=== PATIENT | male | born 1985 | race Two or more races ===

== ENCOUNTER 2016-09-28 08:43 | Emergency (ER) | payer BC ==
[2016-09-28 09:02] VITALS: BP 128/85
[2016-09-28] MEDS ORDERED: NAPROXEN SODIUM 550 MG TABLET PO ONE (09:11)
--- NOTE | 2016-09-28 09:56 | ERNOTE ---
Upper Extremity HPI - General Extremities Pain Location: shoulder: left Time Seen by Provider: 09/28/16 09:10 Source: patient Exam Limitations: no limitations - patient states that he injured his left shoulder approximately 2 weeks ago while at work. Patient was carrying a heavy object with another worker and they slipped and he tried to catch the weight using primarily his left arm. He states that ever since that time he is not been able to use the shoulder appropriately and has lost perhaps half of the strength because of pain in that shoulder as well. - Immun/Allergies/Home Medications Immunizations: IMMUNIZATION HX Immunizations Up to Date Yes History of Influenza Vaccine Yes Hx Pneumococcal Vaccination No Allergies/Adverse Reactions: Allergies Allergy/AdvReac Type Severity Reaction Status Date / Time erythromycin base Allergy Mild Hives Verified 09/28/16 09:03 [Erythromycin Base] Sulfa (Sulfonamide Allergy Mild Hives Verified 09/28/16 09:03 Antibiotics) escitalopram oxalate AdvReac Mild UPSET Verified 09/28/16 09:03 [From Lexapro] STOMACH sertraline HCl [From Zoloft] AdvReac Mild MEMORY Verified 09/28/16 09:03 LOSS, TROUBLE SLEEPING Home Medications: HOME MEDICATIONS Fexofenadine HCl [Becky Allergy] 180 mg PO DAILY PRN 12/08/15 [Last Taken Unknown] Cyclobenzaprine HCl [Flexeril] 10 mg PO TID PRN #30 tab 09/28/16 [Last Taken Unknown] Naproxen [Naprosyn] 500 mg PO BID #60 tablet 09/28/16 [Last Taken Unknown] - History of Present Illness Occurred: other - as noted Location of Incident: work Severity: moderate Loss of Consciousness: Reports: no loss of consciousness Associated Symptoms: Reports: weakness Other Injuries: Reports: none Review of Systems - Review of Systems Constitutional: Present: See HPI EYE: Present: no symptoms reported ENT: Present: no symptoms reported Respiratory: Present: no symptoms reported Cardiology: Present: no symptoms reported Gastrointestinal/Abdominal: Present: no symptoms reported Genitourinary: Present: no symptoms reported Musculoskeletal: Present: muscle pain, joint pain Skin: Present: no symptoms reported Neurological: Present: no symptoms reported Endocrine: Present: no symptoms reported Hematologic/Lymphatic: Present: no symptoms reported Psych: Present: no symptoms reported - Patient's Past Medical History Patient History - Medical: Anxiety, GERD Patient History - Cardiac/Respiratory: Asthma, Bronchitis Patient History - Cancer: No Hx of Cancer Patient History - Surgical Procedures: No surgical history Patient History - Other: None - Family History Father Family History - Medical: History Unknown Family History - Cardiac/Respiratory: History Unknown Mother Family History - Medical: History Unknown Family History - Cardiac/Respiratory: History Unknown - Social History Living Situations: home Abuse History: No History of abuse Psych History: Hx of Anxiety Smoking Status: Former smoker Alcohol Use: none Drug Use: none - Immunizations Immunizations Up to Date: Yes Hx Pneumococcal Vaccination: No History of Influenza Vaccine: Yes Physical Exam - Physical Exam General Appearance: Present: wd/wn, alert, moderate distress Eye Exam: Normal inspection: bilateral, PERRL: bilateral Ears, Nose, Throat: Present: normal ENT inspection, H, normal pharynx Neck: Present: normal inspection, nontender Respiratory: Present: no respiratory distress, normal breath sounds, no accessory muscle use, chest nontender, lungs clear Cardiovascular/Chest: Present: regular rate, rhythm, no murmur, normal peripheral pulses Gastrointestinal/Abdominal: Present: normal bowel sounds, nontender, nondistended, soft, no organomegaly Rectal Exam: Present: deferred Back Exam: Present: normal inspection, normal range of motion Extremity Exam: Present: no edema, decreased range of motion, other - patient has impaired both internal and external rotation of the left shoulder. He also has extraordinary difficulty with abduction of the left shoulder also. Neurological Exam: Present: alert, oriented, normal mood/affect Skin Exam: Present: normal color, warm/dry Lymphatic Exam: Present: no adenopathy ED Progress - Vital Signs Patient's Vital Signs:: I have reviewed the patient's vital signs. Vital Signs: Vital Signs 09/28/16 08:49 Temperature 36.6 C Pulse Rate 104 H Respiratory 14 Rate Blood Pressure 128/85 O2 Sat by Pulse 100 Oximetry - X-Ray X-Ray #1 X-Ray: shoulder - Progress/Reassessment Chief Complaint: Shoulder Injury/Pain Progress:: Improved Plan - Plan Plan: I suspect that the patient has sustained a left rotator cuff injury. The bulk of the pain appears to be across the supraspinatus muscle, however labrum tear should also be considered. Patient will be referred to orthopedic surgery where most likely an MRI will need to be done. Departure Clinical Impression: Rotator cuff injury Qualifiers: Encounter type: initial encounter Laterality: left Qualified Code(s): S46.002A - Unspecified injury of muscle(s) and tendon(s) of the rotator cuff of left shoulder, initial encounter - Departure Disposition: Home self-care Condition: Good Instructions: Rotator Cuff Injury Referrals: Butch Ho MD [Staff Physician] - Prescriptions: Cyclobenzaprine HCl [Flexeril] 10 mg PO TID PRN #30 tab PRN Reason: MUSCLE SPASMS Naproxen [Naprosyn] 500 mg PO BID #60 tablet
== END 2016-09-28 10:06 | disposition home or self-care (01) ==
LOC: ER 08:43
DX: S46.002A Unspecified injury of muscle(s) and tendon(s) of the rotator cuff of left shoulder, initial encounter (principal); W01.0XXA Fall on same level from slipping, tripping and stumbling without subsequent striking against object, initial encounter; Y93.89 Activity, other specified; Y92.69 Other specified industrial and construction area as the place of occurrence of the external cause; Y99.0 Civilian activity done for income or pay

== ENCOUNTER 2016-10-14 20:07 | Emergency (ER) | payer SELFPAY ==
[2016-10-14 20:24] VITALS: BP 122/81
== END 2016-10-14 20:29 | disposition left against medical advice (07) ==
LOC: ER 20:07
DX: Z53.21 Procedure and treatment not carried out due to patient leaving prior to being seen by health care provider (principal)

== ENCOUNTER 2016-11-21 11:59 | Emergency (ER) | payer SELFPAY ==
[2016-11-21 12:13] VITALS: BP 114/74
--- OUTSIDE RECORDS SUMMARY | 2016-11-21 13:01 | XMS REPORT | Summary of Care ---
:1985 Author Organization [facility] Care Team Providers Name Role Phone Brandan Salcedo Primary Care Physician Encounter Date(s): 09/22/16 - 09/22/16 [facility] [address], [place] [address] Discharge Disposition: Discharged to Home or Self Care Attending Physician: Brandan Salcedo MD Admitting Physician: Brandan Salcedo MD Vital Signs No data available for this section Problem List Condition Effective Dates Status Health Status Informant H/O: HTN (hypertension)(Confirmed) Active Allergies, Adverse Reactions, Alerts Substance Reaction Severity Status erythromycin Hives, Breathing issues Active sulfa drugs Hives, Breathing issues Active Medications Becky Allergy 60 mg, Oral, BID, PRN as needed for allergy symptoms, 0 Refill(s), Start Date: 09/07/16 16:44:00 CDT Start Date: 09/07/16 Status: Ordered Results No data available for this section Immunizations No data available for this section Procedures No data available for this section Social History No data available for this section Assessment and Plan No data available for this section
== END 2016-11-21 12:50 | disposition left against medical advice (07) ==
LOC: ER 11:59
DX: Z53.21 Procedure and treatment not carried out due to patient leaving prior to being seen by health care provider (principal)

== ENCOUNTER 2016-12-05 22:17 | Emergency (ER) | payer SELFPAY ==
--- NOTE | 2016-12-05 22:31 | ERNOTE ---
Neuro HPI ER Record Presenting Symptoms: weakness, confusion Source: patient Exam Limitations: clinical condition Immunizations: IMMUNIZATION HX Immunizations Up to Date Yes History of Influenza Vaccine No Hx Pneumococcal Vaccination No Allergies/Adverse Reactions: Allergies Allergy/AdvReac Type Severity Reaction Status Date / Time erythromycin base Allergy Mild Hives Verified 12/05/16 22:37 [Erythromycin Base] Sulfa (Sulfonamide Allergy Mild Hives Verified 12/05/16 22:37 Antibiotics) escitalopram oxalate AdvReac Mild UPSET Verified 12/05/16 22:37 [From Lexapro] STOMACH sertraline HCl [From Zoloft] AdvReac Mild MEMORY Verified 12/05/16 22:37 LOSS, TROUBLE SLEEPING Home Medications: HOME MEDICATIONS Citalopram Hydrobromide [Citalopram HBr] 20 mg PO DAILY 11/21/16 [Last Taken Unknown] clonazePAM [Klonopin] 0.5 mg PO BID 11/21/16 [Last Taken Unknown] risperiDONE [Risperdal] 1 mg PO DAILY 11/21/16 [Last Taken Unknown] Fexofenadine HCl [Becky Allergy] 180 mg PO DAILY 12/05/16 [Last Taken Unknown] Fluticasone Propionate [Flonase] 1 spray NS DAILY 12/05/16 [Last Taken Unknown] Amox Tr/Potassium Clavulanate [Augmentin 875-125 Tablet] 875 mg PO Q12H #20 tab 12/06/16 [Last Taken Unknown] - History of Present Illness Narrative: 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 Law enforcement brought him to the ED. Onset: cannot confirm onset Severity: mild - Character of Deficits Baseline Cognition: Present: alert, oriented x 4 Baseline Gait: Present: walks w/o assistance Review of Systems - Narrative Narrative: Pt not very forthcoming with information. Seems to be lethargic and sleepy until I begin to ask orientation questions and he then is awake and alert and oriented. - Review of Systems ENT: Present: nose congestion - and headache for about 2 weeks. Musculoskeletal: Present: other - foot pain Skin: Present: no symptoms reported Neurological: Present: anxiety Psych: Present: other - hearing voices that told him to come to the ED and told him to admit to me that he has been using methamphetamines. They also told him that a girl would be coming to the ED - Patient's Past Medical History Patient History - Medical: Anxiety, GERD Patient History - Cardiac/Respiratory: Asthma, Bronchitis Patient History - Cancer: No Hx of Cancer Patient History - Surgical Procedures: No surgical history Patient History - Other: None - Family History Father Family History - Medical: History Unknown Family History - Cardiac/Respiratory: History Unknown Mother Family History - Medical: History Unknown Family History - Cardiac/Respiratory: History Unknown - Social History Living Situations: home Abuse History: No History of abuse Psych History: Hx of Anxiety Alcohol Use: none Drug Use: none - Immunizations Immunizations Up to Date: Yes Hx Pneumococcal Vaccination: No History of Influenza Vaccine: No Physical Exam - Physical Exam General Appearance: Present: wd/wn, mild distress, lethargic Head Exam: Present: normal inspection, no evidence of injury Eye Exam: Normal inspection: bilateral, PERRL: bilateral, EOMI: bilateral Ears, Nose, Throat: Present: sinus pain/drainage Neck: Present: normal inspection, nontender Respiratory: Present: no respiratory distress, normal breath sounds, no accessory muscle use, lungs clear Cardiovascular/Chest: Present: regular rate, rhythm, no murmur, normal peripheral pulses Back Exam: Present: normal inspection, normal range of motion, no vertebral tenderness Extremity Exam: Present: normal inspection, normal range of motion, no edema Neurological Exam: Present: alert, oriented, no motor/sensory deficits Skin Exam: Present: normal color, warm/dry Lymphatic Exam: Present: no adenopathy Forbes Coma Scale - Assess Eye Opening: Spontaneous Motor: Obeys Commands Verbal: Oriented - Total Coma Scale Total: 15 ED Progress - Vital Signs Patient's Vital Signs:: I have reviewed the patient's vital signs. - X-Ray X-Ray #1 X-Ray: chest Interpretation: Interp. by me X-ray Comments: nothing acute - CT/Ultrasound CT/Ultrasound Narrative: CT head: no hemorrhage slight atrophy Mucosal thickening in the left frontal and bilateral ethmoid sinuses - Progress/Reassessment Progress Note-Subjective: 12/05/16 23:06 Pt refused any blood or urine testing. 12/05/16 23:11 Spoke to the patient about his refusal of testing. He states that is appears that all we want to do is drug test him. I told him that urine drug testing is just part of the battery of tests we run when someone comes in with confusion. He states he just has not taken his antipsychotic today and it makes him tired. Pt was able to relate orientation to person, place, time and situation. I asked again what we can do for him since he came here for help, he states that I could give him the results of his CT scan then discharge him. I told him I will watch for his results and then we can discuss this again. Departure Clinical Impression: Sinusitis Qualifiers: Sinusitis location: frontal Chronicity: acute Recurrence: non-recurrent Qualified Code(s): J01.10 - Acute frontal sinusitis, unspecified - Departure Disposition: Home self-care Condition: Good Instructions: Sinusitis, Adult, [id number] Additional Instructions: Prescription was transmitted to [facility] pharmacy. Prescriptions: Amox Tr/Potassium Clavulanate [Augmentin 875-125 Tablet] 875 mg PO Q12H #20 tab
[2016-12-05 23:55] VITALS: BP 109/62
[2016-12-06] MEDS ORDERED: AMOX TR/POTASSIUM CLAVULANATE 875 MG TABLET PO ONE (00:03)
[2016-12-06] MEDS ORDERED: AMOX TR/POTASSIUM CLAVULANATE 875 MG TABLET ONE (00:17)
== END 2016-12-06 00:43 | disposition home or self-care (01) ==
LOC: ER 22:17
DX: J01.10 Acute frontal sinusitis, unspecified (principal); F41.9 Anxiety disorder, unspecified; K21.9 Gastro-esophageal reflux disease without esophagitis; Z53.29 Procedure and treatment not carried out because of patient's decision for other reasons

== ENCOUNTER 2016-12-14 11:04 | Emergency (ER) | payer BC ==
[2016-12-14 11:09] VITALS: BP 121/89
--- NOTE | 2016-12-14 11:52 | ERNOTE ---
Upper Extremity HPI - Narrative Date of Service: 12/14/16 - General Extremities Pain Location: shoulder: left Time Seen by Provider: 12/14/16 11:39 Source: patient, RN notes reviewed Exam Limitations: no limitations - Immun/Allergies/Home Medications Immunizations: IMMUNIZATION HX Immunizations Up to Date Yes History of Influenza Vaccine No Hx Pneumococcal Vaccination No Allergies/Adverse Reactions: Allergies Allergy/AdvReac Type Severity Reaction Status Date / Time erythromycin base Allergy Mild Hives Verified 12/05/16 22:37 [Erythromycin Base] Sulfa (Sulfonamide Allergy Mild Hives Verified 12/05/16 22:37 Antibiotics) amoxicillin [From Augmentin] Allergy Other Verified 12/14/16 11:10 clavulanic acid Allergy Other Verified 12/14/16 11:10 [From Augmentin] escitalopram oxalate AdvReac Mild UPSET Verified 12/05/16 22:37 [From Lexapro] STOMACH sertraline HCl [From Zoloft] AdvReac Mild MEMORY Verified 12/05/16 22:37 LOSS, TROUBLE SLEEPING Home Medications: HOME MEDICATIONS Citalopram Hydrobromide [Citalopram HBr] 20 mg PO DAILY 11/21/16 [Last Taken Unknown] clonazePAM [Klonopin] 0.5 mg PO BID 11/21/16 [Last Taken Unknown] risperiDONE [Risperdal] 1 mg PO DAILY 11/21/16 [Last Taken Unknown] Fexofenadine HCl [Becky Allergy] 180 mg PO DAILY 12/05/16 [Last Taken Unknown] Fluticasone Propionate [Flonase] 1 spray NS DAILY 12/05/16 [Last Taken Unknown] Albuterol Sulfate [Ventolin Hfa] 2 puff IH Q4H PRN #1 inhaler 12/14/16 [Last Taken Unknown] - History of Present Illness Narrative: 31 y/o male ambulatory to the ED for pain in his left shoulder and scapula region. This started when he lifted a board incorrectly. He has had problems with his left rotator cuff in the past, but reports the pain is currently in a different location. He has taken Flexeril, Naproxen and Klonopin with some relief. He has also been wearing a sling. Date (Duration): 12/13/16 Location of Incident: home Modifying Factors - (Improves): Reports: immobilization Modifying Factors - (Worsens): Reports: movement Associated Symptoms: Denies: tingling, weakness, numbness distally, loss of power (lt arm) Other Injuries: Reports: none Prior Treament: Reports: recently seen Review of Systems - Review of Systems Constitutional: Absent: fever, chills EYE: Present: no symptoms reported ENT: Present: no symptoms reported Respiratory: Absent: shortness of breath, cough, wheezing Cardiology: Absent: chest pain, syncope Gastrointestinal/Abdominal: Present: no symptoms reported Genitourinary: Present: no symptoms reported Musculoskeletal: Present: muscle pain. Absent: neck pain, joint pain, joint swelling Skin: Absent: rash, lesions, lumps Neurological: Absent: weakness, numbness, tingling Hematologic/Lymphatic: Present: no symptoms reported Psych: Present: anxiety - Patient's Past Medical History Patient History - Medical: Anxiety, GERD Patient History - Cardiac/Respiratory: Asthma, Bronchitis Patient History - Cancer: No Hx of Cancer Patient History - Surgical Procedures: No surgical history Patient History - Other: None - Family History Father Family History - Medical: History Unknown Family History - Cardiac/Respiratory: History Unknown Mother Family History - Medical: History Unknown Family History - Cardiac/Respiratory: History Unknown - Social History Living Situations: home Abuse History: No History of abuse Psych History: Hx of Anxiety Alcohol Use: none Drug Use: none - Immunizations Immunizations Up to Date: Yes Hx Pneumococcal Vaccination: No History of Influenza Vaccine: No Physical Exam - Physical Exam General Appearance: Present: wd/wn, alert, mild distress Head Exam: Present: normal inspection Neck: Present: normal inspection, nontender, supple Respiratory: Present: no respiratory distress, normal breath sounds, no accessory muscle use, lungs clear Cardiovascular/Chest: Present: regular rate, rhythm, no murmur Back Exam: Present: normal range of motion, no CVA tenderness, no vertebral tenderness, other - Tenderness inferior to left scapula Extremity Exam: Present: non-tender, no edema, decreased range of motion - Left shoulder. Absent: joint redness, joint swelling, extremity edema Neurological Exam: Present: alert, oriented, normal mood/affect, no motor/ sensory deficits Skin Exam: Present: normal color, warm/dry ED Progress - Vital Signs Patient's Vital Signs:: I have reviewed the patient's vital signs. Vital Signs: Vital Signs 12/14/16 11:07 Temperature 36.5 C Pulse Rate 87 Respiratory 16 Rate Blood Pressure 121/89 O2 Sat by Pulse 100 Oximetry - X-Ray X-Ray #1 X-Ray: shoulder Interpretation: Reviewed by me X-ray Comments: Left - no acute osseous abnormality noted - Progress/Reassessment Chief Complaint: Shoulder Injury/Pain Progress:: Unchanged Plan - Plan Plan: Placed in sling for comfort, also refilled albuterol inhaler per patient's request as he does not have a PCP Departure Clinical Impression: Left shoulder strain Qualifiers: Encounter type: initial encounter Qualified Code(s): S46.912A - Strain of unspecified muscle, fascia and tendon at shoulder and upper arm level, left arm , initial encounter - Departure Disposition: Home Follow Up Needed Condition: Good Instructions: Shoulder Sprain Additional Instructions: Wear sling as needed, but remove and do range of motion exercises at least twice a day Ice to sore areas Follow up with orthopedics if symptoms do not improve in 7 to 10 days Referrals: Richi Rea MD [Staff Physician] - Prescriptions: Albuterol Sulfate [Ventolin Hfa] 2 puff IH Q4H PRN #1 inhaler PRN Reason: Shortness Of Breath
== END 2016-12-14 12:06 | disposition home or self-care (01) ==
LOC: ER 11:04
DX: S46.912A Strain of unspecified muscle, fascia and tendon at shoulder and upper arm level, left arm, initial encounter (principal); F41.9 Anxiety disorder, unspecified; J45.909 Unspecified asthma, uncomplicated; X50.0XXA Overexertion from strenuous movement or load, initial encounter; Y92.009 Unspecified place in unspecified non-institutional (private) residence as the place of occurrence of the external cause

== ENCOUNTER 2016-12-20 08:23 | Emergency (ER) | payer BC ==
[2016-12-20 08:36] VITALS: BP 141/86
[2016-12-20 08:55] LABS: Hematocrit 43.6 % (42.0-52.0); Hemoglobin 14.1 gm/dL (13.5-18.0); Mean Cell Volume 82.9 fl (78-100); Mean Corpuscular Hemoglobin 26.8 pg (27-31); Mean Corpuscular Hgb Conc 32.3 g/dl (32-36); Mean Platelet Volume 8.5 fl (6.0-9.5); Neutrophil # 3.4 K/mm3 (1.3-6.0); Neutrophil % 47.7 % (42-75.0); Platelet Count 290 K/mm3 (150-450); Red Blood Count 5.26 M/mm3 (4.7-6.0); Red Cell Distribution Width 14.7 % (11.5-14.0); White Blood Count 7.2 K/mm3 (4.0-10.5)
--- NOTE | 2016-12-20 08:58 | ERNOTE ---
Psychological HPI - General Chief Complaint: Psychiatric Problem Source: Reports: patient, police Exam Limitations: Reports: no limitations - Immun/Allergies/Home Medications Allergies/Adverse Reactions: Allergies erythromycin base [Erythromycin Base] Allergy (Mild, Verified 12/05/16 22:37) Hives Sulfa (Sulfonamide Antibiotics) Allergy (Mild, Verified 12/05/16 22:37) Hives amoxicillin [From Augmentin] Allergy (Verified 12/14/16 11:10) Other clavulanic acid [From Augmentin] Allergy (Verified 12/14/16 11:10) Other escitalopram oxalate [From Lexapro] Adverse Reaction (Mild, Verified 12/05/16 22 :37) UPSET STOMACH sertraline HCl [From Zoloft] Adverse Reaction (Mild, Verified 12/05/16 22:37) MEMORY LOSS, TROUBLE SLEEPING Home Medications: HOME MEDICATIONS Citalopram Hydrobromide [Citalopram HBr] 20 mg PO DAILY 11/21/16 [Last Taken Unknown] clonazePAM [Klonopin] 0.5 mg PO BID 11/21/16 [Last Taken Unknown] risperiDONE [Risperdal] 1 mg PO DAILY 11/21/16 [Last Taken Unknown] Fexofenadine HCl [Becky Allergy] 180 mg PO DAILY 12/05/16 [Last Taken Unknown] Fluticasone Propionate [Flonase] 1 spray NS DAILY 12/05/16 [Last Taken Unknown] Albuterol Sulfate [Ventolin Hfa] 2 puff IH Q4H PRN #1 inhaler 12/14/16 [Last Taken Unknown] - History of Present Illness Narrative: Patient is brought in by the local [employer] family contacted him and told him that Leonid appeared to be having some difficulty with drugs and they're worried about him. Patient admits to only being a little bit anxious and states that he has not done any drugs for weeks. He denies any pain or difficulty of any kind however. Time Seen by Provider: 12/20/16 08:40 Arrived by: Reports: police Onset/duration: Reports: intermittent Intent: Reports: no answer Situational Problems: Reports: other - probable illicit drug usage Review of Systems - Review of Systems Constitutional: Present: See HPI EYE: Present: no symptoms reported ENT: Present: no symptoms reported Respiratory: Present: no symptoms reported Cardiology: Present: no symptoms reported Gastrointestinal/Abdominal: Present: no symptoms reported Genitourinary: Present: no symptoms reported Musculoskeletal: Present: no symptoms reported Skin: Present: no symptoms reported Neurological: Present: no symptoms reported Endocrine: Present: no symptoms reported Hematologic/Lymphatic: Present: no symptoms reported Psych: Present: See HPI, anxiety - Patient's Past Medical History Patient History - Medical: Anxiety, GERD Patient History - Cardiac/Respiratory: Asthma, Bronchitis Patient History - Cancer: No Hx of Cancer Patient History - Surgical Procedures: No surgical history Patient History - Other: None - Family History Father Family History - Medical: History Unknown Family History - Cardiac/Respiratory: History Unknown Mother Family History - Medical: History Unknown Family History - Cardiac/Respiratory: History Unknown - Social History Living Situations: home Abuse History: No History of abuse Psych History: Hx of Anxiety, Hx of Depression Smoking Status: Current every day smoker Have you smoked in the past 12 months: Yes Alcohol Use: none Drug Use: none - Immunizations Immunizations Up to Date: Yes Hx Pneumococcal Vaccination: No History of Influenza Vaccine: No Physical Exam - Physical Exam General Appearance: Present: wd/wn, alert, no apparent distress Head Exam: Present: normal inspection Eye Exam: Normal inspection: bilateral, PERRL: bilateral Ears, Nose, Throat: Present: normal ENT inspection, H, normal pharynx Neck: Present: normal inspection, nontender Respiratory: Present: no respiratory distress, normal breath sounds, no accessory muscle use, chest nontender, lungs clear Cardiovascular/Chest: Present: regular rate, rhythm, no murmur, normal peripheral pulses Gastrointestinal/Abdominal: Present: normal bowel sounds, nontender, nondistended, soft, no organomegaly Rectal Exam: Present: deferred Back Exam: Present: normal inspection, normal range of motion Extremity Exam: Present: normal inspection, non-tender, no edema, normal range of motion Neurological Exam: Present: alert, oriented, other - patient appears to be somewhat anxious and elusive Skin Exam: Present: normal color, warm/dry Lymphatic Exam: Present: no adenopathy ED Progress - Vital Signs Patient's Vital Signs:: I have reviewed the patient's vital signs. Vital Signs: Vital Signs 12/20/ 08:30 Temperature 37 C Pulse Rate 76 Respiratory 14 Rate Blood Pressure 141/86 - Progress/Reassessment Chief Complaint: Psychiatric Problem Plan - Plan Plan: Patient refuses to give a urinalysis and refuses to wait for the blood tests to come back. He denies suicidal or homicidal ideation and states he would rather leave now. He signed an AMA sheet and left the hospital. For all intent and purposes he appeared to be in stable condition. All lab tests will be reviewed as a return and if anything untoward is revealed patient will be contacted at that time. Departure Clinical Impression: Anxiety - Departure Disposition: Against medical advice
[2016-12-20 09:13] LABS: ALT 42 U/L (19-67); AST 18 U/L (0-48); Alkaline Phosphatase * 63 U/L (50-170); Anion Gap 14.3 mmol/L (6.8-13.8); Bilirubin, Total 0.2 mg/dL (0.0-1.1); Blood Urea Nitrogen 16 mg/dL (6-23); Ca. Corrected For Albumin 8.5 mg/dL (8.4-10.2); Calcium * 8.8 mg/dL (7.9-10.9); Carbon Dioxide 27.7 mmol/L (24-32.6); Chloride 103 mmol/L (97-106); Glucose * 103 mg/dL (70-110); Magnesium 1.6 mg/dL (1.2-2.8); Salicylate Less than 2.8 mg/dL (2.8-20.0); Sodium 141 mmol/L (132-142); Total Protein 7.5 gm/dL (6.2-8.2)
== END 2016-12-20 09:15 | disposition left against medical advice (07) ==
LOC: ER 08:23
DX: F41.9 Anxiety disorder, unspecified (principal); F17.200 Nicotine dependence, unspecified, uncomplicated; Z53.29 Procedure and treatment not carried out because of patient's decision for other reasons
CPT/HCPCS: 36415; 80053; 83735; 85025; 99282; G0480; G0481

== ENCOUNTER 2017-03-22 09:54 | Emergency (ER) | payer BC ==
[2017-03-22 10:09] VITALS: BP 119/75
--- NOTE | 2017-03-22 10:48 | ERNOTE ---
Date of Service: 03/22/17 Time Seen by Provider: 03/22/17 10:24 Stated Complaint: URI Presenting Symptoms:: cough Source: patient Exam Limitations: no limitations Immunizations: IMMUNIZATION HX Immunizations Up to Date Yes History of Influenza Vaccine No Hx Pneumococcal Vaccination No Allergies/Adverse Reactions: Allergies erythromycin base [Erythromycin Base] Allergy (Mild, Verified 03/22/17 10:10) Hives Sulfa (Sulfonamide Antibiotics) Allergy (Mild, Verified 03/22/17 10:10) Hives amoxicillin [From Augmentin] Allergy (Verified 03/22/17 10:10) Other clavulanic acid [From Augmentin] Allergy (Verified 03/22/17 10:10) Other escitalopram oxalate [From Lexapro] Adverse Reaction (Mild, Verified 03/22/17 10 :10) UPSET STOMACH sertraline HCl [From Zoloft] Adverse Reaction (Mild, Verified 03/22/17 10:10) MEMORY LOSS, TROUBLE SLEEPING Home Medications: HOME MEDICATIONS Citalopram Hydrobromide [Citalopram HBr] 20 mg PO DAILY 11/21/16 [Last Taken Unknown] clonazePAM [Klonopin] 0.5 mg PO BID 11/21/16 [Last Taken Unknown] risperiDONE [Risperdal] 0.5 mg PO DAILY 11/21/16 [Last Taken Unknown] Fexofenadine HCl [Becky Allergy] 180 mg PO DAILY 12/05/16 [Last Taken Unknown] Fluticasone Propionate [Flonase] 1 spray NS DAILY 12/05/16 [Last Taken Unknown] Albuterol Sulfate [Ventolin Hfa] 2 puff IH Q4H PRN #1 inhaler 12/14/16 [Last Taken Unknown] - History of Present Ilness Narrative: Pt. comes in with c/o cough and chest congestion for three weeks. Pt. states that he has had fevers, rhinorrhea, and sinus congestion and sinus headache with this. Pt. has a hx of schizoaffective disorder and has been off of his psych meds for three weeks as well ans hears a roaring in his head and has a headache from this as well that worsens with electrical noise. Timing: getting worse Severity: moderate Frequency/Possible Cause: Reports: frequent episodes, allergen exposure, illness exposure, out of med Modifying Factors - Improves: Reports: nothing Modifying Factors - Worsens: Reports: coughing, other - electrical noises Associated Symptoms: Reports: cough, nasal congestion, headache, sore throat Prior Treatment: Reports: treated by physician - 6 months ago physician left town. Denies: recently seen, recently hospitalized, currently on antibiotics Review of Systems - Review of Systems Constitutional: Present: no symptoms reported. Absent: weakness, fatigue, malaise EYE: Present: no symptoms reported ENT: Present: nose congestion, nasal drainage, sore throat Respiratory: Present: cough. Absent: shortness of breath, wheezing Cardiology: Present: no symptoms reported. Absent: chest pain, palpitations, edema Gastrointestinal/Abdominal: Present: no symptoms reported. Absent: nausea, vomiting, diarrhea Musculoskeletal: Present: no symptoms reported. Absent: back pain, joint pain Skin: Present: no symptoms reported. Absent: rash, change in color Neurological: Present: anxiety, depressed, headache. Absent: seizure, weakness , numbness, tingling Endocrine: Present: no symptoms reported Psych: Present: anxiety, depressed, emotional problems All Other Systems: All systems neg except as marked - Patient's Past Medical History Patient History - Medical: Anxiety, GERD Patient History - Cardiac/Respiratory: Asthma, Bronchitis Patient History - Cancer: No Hx of Cancer Patient History - Surgical Procedures: No surgical history Patient History - Other: None - Family History Father Family History - Medical: History Unknown Family History - Cardiac/Respiratory: History Unknown Mother Family History - Medical: History Unknown Family History - Cardiac/Respiratory: History Unknown - Social History Living Situations: home Abuse History: No History of abuse Psych History: Hx of Anxiety, Hx of Depression Smoking Status: Current every day smoker Do you dip or chew tobacco: No - Immunizations Immunizations Up to Date: Yes Hx Pneumococcal Vaccination: No History of Influenza Vaccine: No Physical Exam - Physical Exam General Appearance: Present: wd/wn, alert, no apparent distress Head Exam: Present: normal inspection, no evidence of injury Eye Exam: Normal inspection: bilateral, PERRL: bilateral, EOMI: bilateral Ears, Nose, Throat: Present: normal ENT inspection, normal pharynx Neck: Present: normal inspection, nontender, supple, full range of motion. Absent: lymphadenopathy (R), lymphadenopathy (L) Respiratory: Present: no respiratory distress, no accessory muscle use, chest nontender, rhonchi - BUL. Absent: crackles, rales, wheezing Cardiovascular/Chest: Present: regular rate, rhythm, no murmur, normal peripheral pulses Gastrointestinal/Abdominal: Present: normal bowel sounds, nontender, nondistended, soft, no organomegaly Back Exam: Present: normal inspection Extremity Exam: Present: normal inspection, non-tender, normal range of motion, no edema Neurological Exam: Present: alert, oriented, no motor/sensory deficits, other - delusional and anxious Skin Exam: Present: normal color, warm/dry. Absent: pallor, skin rash ED Progress - Date and Time Seen: Date and Time: 03/22/17 14:54 Pt. left the ER when I went to another pt. room and said goodbye to nurse and nurse did not stop him. - Vital Signs Patient's Vital Signs:: I have reviewed the patient's vital signs. Vital Signs: Vital Signs 03/22/17 10:04 Temperature 37.1 C Pulse Rate 99 Respiratory 16 Rate Blood Pressure 119/75 O2 Sat by Pulse 100 Oximetry - Progress/Reassessment Chief Complaint: Upper Respiratory Symptoms Departure Clinical Impression: Cough - Departure Disposition: Against medical advice Condition: Undetermined Referrals: Andrew Hughes MD [Primary Care Provider] -
== END 2017-03-22 11:18 | disposition left against medical advice (07) ==
LOC: ER 09:54
DX: R05 Cough (principal); F17.200 Nicotine dependence, unspecified, uncomplicated

== ENCOUNTER 2017-03-24 07:26 | Emergency (ER) | payer BC ==
[2017-03-24] MEDS ORDERED: TETRACAINE HCL 150 DROP BTL ONE (08:02)
[2017-03-24] MEDS ORDERED: TETRACAINE HCL 150 DROP BTL EACHEYE ONE (08:02)
[2017-03-24] MEDS ORDERED: CYCLOPENTOLATE HCL 20 DROP BTL LEFTEYE ONE (08:07)
[2017-03-24] MEDS ORDERED: [UNRECOGNIZED DRUG - REMARK] LEFTEYE ONE (08:07)
[2017-03-24] MEDS ORDERED: CYCLOPENTOLATE HCL 20 DROP BTL ONE (08:09)
--- NOTE | 2017-03-24 08:27 | ERNOTE ---
ENT HPI Presenting Symptoms: eye pain Time Seen by Provider: 03/24/17 07:59 Source: patient Exam Limitations: no limitations - Immun/Allergies/Home Medications Immunizations: IMMUNIZATION HX Immunizations Up to Date Yes History of Influenza Vaccine No Hx Pneumococcal Vaccination No Allergies/Adverse Reactions: Allergies Allergy/AdvReac Type Severity Reaction Status Date / Time erythromycin base Allergy Mild Hives Verified 03/24/17 07:58 [Erythromycin Base] Sulfa (Sulfonamide Allergy Mild Hives Verified 03/24/17 07:58 Antibiotics) amoxicillin [From Augmentin] Allergy Other Verified 03/24/17 07:58 clavulanic acid Allergy Other Verified 03/24/17 07:58 [From Augmentin] escitalopram oxalate AdvReac Mild UPSET Verified 03/24/17 07:58 [From Lexapro] STOMACH sertraline HCl [From Zoloft] AdvReac Mild MEMORY Verified 03/24/17 07:58 LOSS, TROUBLE SLEEPING Home Medications: HOME MEDICATIONS Citalopram Hydrobromide [Citalopram HBr] 20 mg PO DAILY 11/21/16 [Last Taken Unknown] clonazePAM [Klonopin] 0.5 mg PO BID 11/21/16 [Last Taken Unknown] risperiDONE [Risperdal] 0.5 mg PO DAILY 11/21/16 [Last Taken Unknown] Fexofenadine HCl [Becky Allergy] 180 mg PO DAILY 12/05/16 [Last Taken Unknown] Fluticasone Propionate [Flonase] 1 spray NS DAILY 12/05/16 [Last Taken Unknown] Albuterol Sulfate [Ventolin Hfa] 2 puff IH Q4H PRN #1 inhaler 12/14/16 [Last Taken Unknown] Acetaminophen with Codeine [Tylenol with Codeine #3 Tablet] 1 - 2 tab PO Q4H PRN #20 tab 03/24/17 [Last Taken Unknown] Doxycycline Monohydrate 100 mg PO BID #20 tablet 03/24/17 [Last Taken Unknown] Polymyxin B Sulf/Trimethoprim [Polytrim Eye Drops] 2 drop LEFTEYE QID #10 ml 06/09 [Last Taken Unknown] - History of Present Illness Narrative: He was working in the yard yesterday and a branch scratched his left eye. No complains of moderate pain and tearing in the left eye, however he also has a cough and some congestion. Severity: Present: moderate ENT Location: Present: eye (L) Prearrival Treatment: Present: no prearrival treatment Modifying Factors - Improves: Reports: nothing Modifying Factors - Worsens: Reports: nothing Associated Symptoms - ENT: Reports: cough Review of Systems - Review of Systems Constitutional: Present: See HPI EYE: Present: see HPI, tearing ENT: Present: no symptoms reported Respiratory: Present: cough Cardiology: Present: no symptoms reported Gastrointestinal/Abdominal: Present: no symptoms reported Genitourinary: Present: no symptoms reported Musculoskeletal: Present: no symptoms reported Skin: Present: no symptoms reported Neurological: Present: no symptoms reported Endocrine: Present: no symptoms reported Hematologic/Lymphatic: Present: no symptoms reported Psych: Present: no symptoms reported - Patient's Past Medical History Patient History - Medical: Anxiety, GERD Patient History - Cardiac/Respiratory: Asthma, Bronchitis Patient History - Cancer: No Hx of Cancer Patient History - Surgical Procedures: No surgical history Patient History - Other: None - Family History Father Family History - Medical: History Unknown Family History - Cardiac/Respiratory: History Unknown Mother Family History - Medical: History Unknown Family History - Cardiac/Respiratory: History Unknown - Social History Abuse History: No History of abuse Psych History: Hx of Anxiety, Hx of Depression - Immunizations Immunizations Up to Date: Yes Hx Pneumococcal Vaccination: No History of Influenza Vaccine: No Physical Exam - Physical Exam General Appearance: Present: wd/wn, alert, moderate distress Head Exam: Present: normal inspection Eye Exam: Normal inspection: right - on examination with fluorescein corneal abrasion revealed, PERRL: bilateral, EOMI: bilateral, Eye drainage: left, Photophobia: left Ears, Nose, Throat: Present: normal ENT inspection, H, normal pharynx Neck: Present: normal inspection, nontender Respiratory: Present: no respiratory distress, no accessory muscle use, chest nontender, other - fine course breath sounds heard throughout Cardiovascular/Chest: Present: regular rate, rhythm, no murmur, normal peripheral pulses Gastrointestinal/Abdominal: Present: normal bowel sounds, nontender, nondistended, soft, no organomegaly Rectal Exam: Present: deferred Back Exam: Present: normal inspection, normal range of motion Extremity Exam: Present: normal inspection, non-tender, no edema, normal range of motion Neurological Exam: Present: alert, oriented, normal mood/affect Skin Exam: Present: normal color, warm/dry Lymphatic Exam: Present: no adenopathy ED Progress - Vital Signs Patient's Vital Signs:: I have reviewed the patient's vital signs. Vital Signs: Vital Signs 03/24/17 07:31 Temperature 37.3 C Pulse Rate 116 H Respiratory 18 Rate Blood Pressure 141/97 O2 Sat by Pulse 97 Oximetry - Progress/Reassessment Chief Complaint: Eye Injury/Trauma Plan - Plan Plan: The patient be started on doxycycline for his bronchitis, and we will give him eyedrops, Polytrim, as well as Tylenol with codeine for the pain and he will follow-up with his family physician as needed. Departure Clinical Impression: Bronchitis Corneal abrasion, left Qualifiers: Encounter type: initial encounter Qualified Code(s): S05.02XA - Injury of conjunctiva and corneal abrasion without foreign body, left eye, initial encounter - Departure Disposition: Home self-care Condition: Good Instructions: Acute Bronchitis, [id number] Referrals: Andrew Hughes MD [Primary Care Provider] - Prescriptions: Acetaminophen with Codeine [Tylenol with Codeine #3 Tablet] 1 - 2 tab PO Q4H PRN #20 tab PRN Reason: Pain Doxycycline Monohydrate 100 mg PO BID #20 tablet Polymyxin B Sulf/Trimethoprim [Polytrim Eye Drops] 2 drop LEFTEYE QID #10 ml
[2017-03-24 08:38] VITALS: BP 142/86
== END 2017-03-24 08:39 | disposition home or self-care (01) ==
LOC: ER 07:26
DX: J40 Bronchitis, not specified as acute or chronic (principal); S05.02XA Injury of conjunctiva and corneal abrasion without foreign body, left eye, initial encounter; X58.XXXA Exposure to other specified factors, initial encounter; Y93.H9 Activity, other involving exterior property and land maintenance, building and construction; Y92.9 Unspecified place or not applicable; K21.9 Gastro-esophageal reflux disease without esophagitis; F41.9 Anxiety disorder, unspecified

== ENCOUNTER 2017-04-25 12:19 | Emergency (ER) | payer BC ==
[2017-04-25 12:58] VITALS: BP 132/81
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
[2017-04-25] MEDS ORDERED: LORazepam 1 MG TABLET ONE (13:05)
[2017-04-25] MEDS: LORazepam 1 MG TABLET PO ONE (13:06)
[2017-04-25 14:15] LABS: Urine Bilirubin Negative (NEGATIVE); Urine Blood Negative /ul (NEGATIVE); Urine Ketone 15 mg/dL (NEGATIVE); Urine Nitrite Negative (NEGATIVE); Urine Protein Negative (NEGATIVE); Urine Urobilinogen Normal (NORMAL)
[2017-04-25 14:36] LABS: Urine Appearance Clear; Urine Bacteria None Seen; Urine Color Yellow; Urine RBC None Seen /hpf (0-5); Urine WBC None Seen /hpf (0-5)
[2017-04-25 14:37] LABS: Cocaine Ur Negative (NEGATIVE); Urine Barbiturate Negative (NEGATIVE); Urine PCP Negative (NEGATIVE)
[2017-04-25 14:38] LABS: Urine Benzodiazepines Positive (NEGATIVE); Urine Opiates Positive (NEGATIVE); Urine THC Positive (NEGATIVE)
== END 2017-04-25 14:43 ==
LOC: ER 12:19
DX: S09.90XA Unspecified injury of head, initial encounter (principal); F25.9 Schizoaffective disorder, unspecified; X79.XXXA Intentional self-harm by blunt object, initial encounter; Y93.89 Activity, other specified